=== PATIENT | male | born 1950 | race Caucasian/White ===

== ENCOUNTER → 2021-10-23 | Outpatient (CLI) | payer MEDICARE | LOC: COL.RAD 10-13 15:00 | DX: Z12.2 Encounter for screening for malignant neoplasm of respiratory organs (principal); J39.8 Other specified diseases of upper respiratory tract; Z87.891 Personal history of nicotine dependence ==

== ENCOUNTER 2023-12-29 07:50 | Emergency (ER) | payer MEDICARE, OTHER ==
[~2023-12-29] VITALS: Ht 172.7 cm; Wt 81.8 kg
[2023-12-29] MEDS ORDERED: Albuterol/Ipratropium 3 MG-0.5 MG/3 ML Neb Soln IH ONE (08:15)
[2023-12-29] MEDS ORDERED: methylPREDNISolone Sod Succ 125 MG/2 ML VIAL IV ONE (08:15)
[2023-12-29 08:39] LABS: HEMOGLOBIN 14.3 g/dl (13.5-18.0); MEAN CELL VOLUME 95 fl (80.0-100.0); MEAN CORPUSCULAR HEMOGLOBIN 33 pg (27-31); MEAN CORPUSCULAR HGB CONC 35 g/dl (33.0-37.0); MEAN PLATELET VOLUME 10.3 fl (7.4-10.4); PLATELET COUNT 166 K/mm3 (130-400); RED BLOOD COUNT 4.33 M/mm3 (4.20-5.60); REDCELL DISTRIBUTION WIDTH-CV 13.2 % (11.5-14.5)
[2023-12-29 08:52] LABS: ALBUMIN 3.5 gm/dL (3.4-4.8); CALCIUM 8.6 mg/dL (8.4-10.2); CREATININE, serum 1.01 mg/dL (0.72-1.25); TOTAL PROTEIN 6.8 gm/dL (6.2-8.1)
[2023-12-29 09:11] LABS: BAND 5 % (0-10); LYMPHOCYTE 5 % (20.0-51.0); NEUTROPHILS 80 % (42.0-75.2)
[2023-12-29] MEDS ORDERED: PROAIR HFA0.09 MG/AC IH (09:11)
[2023-12-29 09:12] LABS: PLATELET ESTIMATE NORMAL (NORMAL)
[2023-12-29 09:30] VITALS: BP 123/67; PULSE 102; TEMP 99.3
== END 2023-12-29 09:32 | disposition home or self-care (01) ==
LOC: COL.ER 07:50
PROVIDERS: Family Medicine
DX: J10.1 Influenza due to other identified influenza virus with other respiratory manifestations (principal); Z87.891 Personal history of nicotine dependence
CPT/HCPCS: J2930

== ENCOUNTER → 2024-05-24 | Outpatient (CLI) | payer MEDICARE ==
[~2024-05-24] MED LIST: PROAIR HFA0.09 MG/AC IH
== END ==
LOC: COL.RAD 10:32
DX: K80.20 Calculus of gallbladder without cholecystitis without obstruction (principal); K86.89 Other specified diseases of pancreas

== ENCOUNTER 2024-08-21 07:45 | Day surgery (SDC) | payer MEDICARE, OTHER ==
[~2024-08-21] VITALS: Ht 172.7 cm; Wt 81.4 kg
[~2024-08-21 07:45] MED LIST changes: +LR 1,000 ML IV SCH
[2024-08-21] MEDS ORDERED: NS 10 ML IV ONE (08:24)
[2024-08-21] MEDS ORDERED: Lidocaine PF 2% (20 MG/ML) 5 ML VIAL ONE (08:24)
[2024-08-21] MEDS ORDERED: fentaNYL 50 MCG/ML 2 ML VIAL ONE (08:24)
[2024-08-21] MEDS ORDERED: dexAMETHasone 10 MG/ML VIAL ONE (08:24)
[2024-08-21] MEDS ORDERED: Ketorolac 30 MG/ML VIAL ONE (08:24)
[2024-08-21] MEDS ORDERED: Ondansetron 4 MG/2 ML VIAL ONE (08:24)
[2024-08-21] MEDS ORDERED: Rocuronium 50 MG/5 ML Multi-Dose VIAL ONE (08:24)
[2024-08-21] MEDS ORDERED: SYNTHROID0.112 MG/T PO (08:49)
[2024-08-21] MEDS ORDERED: COSOPT 2%-0.5%10 ML OU (08:50)
[2024-08-21] MEDS ORDERED: VIAGRA 25MG TAB25 MG PO (08:50)
[2024-08-21] MEDS ORDERED: XALATAN EYE DROPS OU (08:51)
[2024-08-21] MEDS ORDERED: Indocyanine Green 12.5 MG in Water For Injection,Sterile 2.5 ML IV ONE (09:00)
[2024-08-21 09:18] VITALS: BP 118/69; PULSE 64; TEMP 97.8
[2024-08-21 09:25] LABS: BASO # 0.1 K/mm3 (0.0-0.2); EOS # 0.1 K/mm3 (0.0-0.7); EOS % 2.9 % (0.0-4.0); GRAN # 2.9 K/mm3 (1.4-6.5); GRAN % 58.8 % (42.2-75.2); HEMATOCRIT 42.4 % (42.0-52.0); HEMOGLOBIN 14.9 g/dl (13.5-18.0); LYMPH # 1.1 K/mm3 (1.2-3.4); LYMPH % 23.4 % (20.0-51.0); MEAN CELL VOLUME 94 fl (80.0-100.0); MEAN CORPUSCULAR HEMOGLOBIN 33 pg (27-31); MEAN CORPUSCULAR HGB CONC 35 g/dl (33.0-37.0); MEAN PLATELET VOLUME 9.5 fl (7.4-10.4); MONO # 0.7 K/mm3 (0.1-0.6); MONO % 13.7 % (1.7-9.3); PLATELET COUNT 222 K/mm3 (130-400); RED BLOOD COUNT 4.51 M/mm3 (4.20-5.60); REDCELL DISTRIBUTION WIDTH-CV 13.2 % (11.5-14.5)
[2024-08-21] MEDS ORDERED: Ondansetron 4 MG/2 ML VIAL IV PRN (09:45)
[2024-08-21] MEDS ORDERED: HYDROmorphone 1 MG/1 ML SYRINGE [PACU/SDC ONLY] IV PRN (09:45)
[2024-08-21] MEDS ORDERED: fentaNYL 50 MCG/ML 1 ML SYRINGE/VIAL [PACU/SDC ONLY] IV PRN (09:45)
[2024-08-21] MEDS ORDERED: droPERidol 2.5 MG/ML 2 ML VIAL IV PRN (09:45)
[2024-08-21] MEDS ORDERED: hydrALAZINE 20 MG/ML 1 ML VIAL IV PRN (09:45)
[2024-08-21] MEDS ORDERED: ceFAZolin 2 G in Water For Injection,Sterile 20 ML IV ONE (10:00)
[2024-08-21] MEDS ORDERED: MOTRIN 600600 MG/TAB PO (10:02)
[2024-08-21] MEDS ORDERED: NORCO 325 MG-51 TAB PO (10:02)
[2024-08-21] MEDS ORDERED: Topical Skin Adhesive 1 EACH (1 ML) TOP ONE (10:09)
[2024-08-21 10:12] LABS: ALBUMIN 3.7 g/dL (3.4-4.8); BILIRUBIN,TOTAL 0.5 mg/dL (0.2-1.2); CREATININE, serum 0.85 mg/dL (0.72-1.25); POTASSIUM 4.3 mEq/L (3.5-4.5); TOTAL PROTEIN 6.4 g/dl (6.2-8.1)
[2024-08-21 11:25] VITALS: BP 148/81; PULSE 68; TEMP 97.1
[2024-08-21 11:40] VITALS: BP 147/82; PULSE 65
[2024-08-21 11:55] VITALS: BP 119/89; PULSE 70
--- NOTE | 2024-08-21 14:05 | NUR ---
1125: PT TO BAY 6 FROM PACU. REPORT RECEIVED FROM ADNREY GARBER. ALERT AND ORIENTED. VSS. 4 ABDOMINAL INCISIONS CLOSED WITH SKIN GLUE C/D/I. DENIES PAIN OR NAUSEA. TOLERATING ICE CHIPS. REQUESTING COFFEE. NO FURTHER NEEDS NOTED. RESTING IN COT. CALL LIGHT IN REACH. , CORRY, AT BEDSIDE.
--- NOTE | 2024-08-21 15:45 | NUR ---
1140: PT ALERT AND ORIENTED. VSS. PT DENIES PAIN OR NAUSEA. TOLERATING COFFEE. REQUESTING MUFFIN. NO FURTHER NEEDS NOTED. RESTING IN COT. CALL LIGHT IN REACH. , CORRY, AT BEDSIDE. 1155: PT ALERT AND ORIENTED. VSS. PT DENIES PAIN OR NAUSEA. TOLERATING MUFFIN AND COFFEE. NO FURTHER NEEDS NOTED. ABDOMINAL INCISIONS REMAIN C/D/I. RESTING IN COT. CALL LIGHT IN REACH. , CORRY, AT BEDSIDE. 1158: PT AMBULATED TO BATHROOM AND BACK WITH STAND-BY ASSIT. IV DC'D. PT DENIES ASSISTANCE DRESSING. 1215: DISCHARGE EDUCATION COMPLETED AT THIS TIME. QUESTIONS INVITED AND ANSWERED. PT STATED UNDERSTANDING OF DISCHARGE INSTRUCTIONS. DISCHARGE PAPERWORK GIVEN TO PT. 1220: PT AMBULATED INDEPENDENTLY FROM COT TO WHEELCHAIR. PT DISHARGED TO HOME VIA PRIVATE VEHICLE WITH CORRY.
== END 2024-08-21 12:20 | disposition home or self-care (01) ==
LOC: SDCO 07:45
PROVIDERS: Surgery
DX: K80.10 Calculus of gallbladder with chronic cholecystitis without obstruction (principal); K21.9 Gastro-esophageal reflux disease without esophagitis; Z87.891 Personal history of nicotine dependence
CPT/HCPCS: J0665; J0690; J1100; J1885; J2405; J2704; J3010; J7120